=== PATIENT | male | born 1990 | race Caucasian/White ===

== ENCOUNTER 2019-05-26 23:11 | Emergency (ER) | payer SELFPAY ==
[~2019-05-26] VITALS: Ht 177.8 cm; Wt 90.7 kg
[2019-05-26 23:20] VITALS: BP_SYST 101
--- NOTE | 2019-05-26 23:20 | NUR ---
Pt yuliana [facility] to chair 2 for evaluation
--- NOTE | 2019-05-26 23:20 | NUR ---
Pt came in to the ED for a medical screening exam today. The patient reported he resisted arrest and was wresting the police officers, causing him to hit head on the window/front of the seat. He denied pain on assessment. Denied any allergies to medications. The patient denied loss of consciousness, dizziness, nausea, vomiting, or any other complaints. Pt with normal respiratory effort, no other remarkable symptoms noted. ER MD to narciso
--- NOTE | 2019-05-27 00:23 | NUR ---
ER at bedside examining patient.
[2019-05-27 00:46] VITALS: BP_SYST 108
--- NOTE | 2019-05-27 00:46 | NUR ---
Patient has been medically cleared by Dr Umana, given written and verbal discharge instructions and verbalizes understanding. ER MD discussed with patient the results and treatment provided. Patient in stable condition. ID arm band removed. No Rx given. Patient educated on pain management and to follow up with [employer]D. Pain Scale 0/10. Opportunity for questions provided and answered. Accompanied by officer, pt with handcuffs.
== END 2019-05-27 00:46 ==
LOC: SED 23:11
DX: S09.8XXA Other specified injuries of head, initial encounter (principal); Y35.811A Legal intervention involving manhandling, law enforcement official injured, initial encounter; Y93.89 Activity, other specified; Y92.89 Other specified places as the place of occurrence of the external cause; Y99.8 Other external cause status
CPT/HCPCS: 99283